=== PATIENT | female | born 1990 | race African-American/Black ===

== ENCOUNTER 2021-11-06 14:37 | Emergency (ER) | payer SELFPAY ==
[2021-11-06 14:46] VITALS: BP 112/99; PULSE 99; RESP 16; TEMP 36.4; O2SAT 98
--- NOTE | 2021-11-06 16:02 | ED.BACK ---
HPI - Back Pain/Injury General Chief Complaint: Back Pain/Injury Stated Complaint: surinder pain Time Seen by Provider: 11/06/21 15:50 Source: patient and RN notes reviewed Mode of arrival: ambulatory Limitations: no limitations History of Present Illness HPI Narrative: Patient presents today complaining of left-sided upper back pain since last night. Denies any injury or trauma. 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 States she did some jumping jacks yesterday as well, but denies specific injury. She currently rates her pain 10/10 and has been taking Aleve and ibuprofen without relief. Pain increases with deep breath and certain arm movements. MD elicited complaint: back pain Related Data Allergies Allergy/AdvReac Type Severity Reaction Status Date / Time No Known Allergies Allergy Verified 11/06/21 15:25 Review of Systems Review of Systems: CONSTITUTIONAL: Denies body aches, fever, chills, or sweats. EYES: Denies visual changes, redness, or discharge. ENT: Denies rhinorrhea, congestion, sore throat, or otalgia. CARDIOVASCULAR: Denies chest pain, palpitations, or edema. RESPIRATORY: Denies cough or dyspnea. GASTROINTESTINAL: Denies abdominal pain, nausea, vomiting, or diarrhea. GENITOURINARY: Denies dysuria or hematuria. SKIN: Denies rash, itching, or wounds. MUSCULOSKELETAL: Denies joint pain, or myalgia. + Left upper back pain NEUROLOGIC: Denies headache, numbness, tingling, or weakness. PSYCH: Denies depression or anxiety. PMFSH Comments At time of signature, I have reviewed and agree with nursing past medical, surgical, social and family history unless otherwise noted. Please see nursing chart for further information. There is no relevant family history pertinent to the presenting complaint Exam Narrative: GENERAL: Well-appearing, well-nourished, and in no acute distress. HEAD: Normocephalic, atraumatic. EYES: EOMI. No redness or drainage. Conjunctivae normal. ENT: Mucous membranes pink and moist. NECK: Normal AROM. CHEST: No respiratory distress. Clear to auscultation. HEART: Regular rate and rhythm. No murmur appreciated. Normal peripheral pulses. MUSCULOSKELETAL: No bony tenderness of the spine. Left upper back paraspinal muscles are nontender. EXTREMITIES: Normal range of motion. No edema. Pain to left upper back at scapular border with increased pain when she stretched her left arm over her head toward her right shoulder. SKIN: Warm, dry, no rash. Capillary refill normal. Normal skin turgor. NEURO: No focal deficits. Alert and oriented x3. Gait steady. PSYCH: Normal affect. No signs of depression or anxiety. Course Course Level of Care: Express Care Visit Vital Signs Vital signs: Vital Signs Temperature 97.5 F L 11/06/21 14:46 Pulse Rate 99 11/06/21 14:46 Respiratory Rate 16 11/06/21 14:46 Blood Pressure 112/99 H 11/06/21 14:46 Pulse Oximetry 98 11/06/21 14:46 Temperature 97.5 F L 11/06/21 14:46 Pulse Rate 99 11/06/21 14:46 Respiratory Rate 16 11/06/21 14:46 Blood Pressure 112/99 H 11/06/21 14:46 Pulse Oximetry 98 11/06/21 14:46 Reviewed. Pt has been instructed to follow up with her PCP regarding her elevated blood pressure today. MDM - Back Pain/Injury Differential Diagnosis Differential diagnosis: Likely thoracic back pain and other (Thoracic back strain, trapezius strain, chest wall strain) Critical Care Time Critical Care Time Critical Care Time: No Discharge Plan Discharge Clinical Impression: Strain of thoracic back region Patient Disposition: Home, Self-Care Condition: Stable Instructions: Thoracic Back Strain (ED) Additional Instructions: Please take the Flexeril as prescribed. Do not drive within 8 hours of taking the Flexeril as it can make you drowsy. Continue an anti-inflammatory such as Aleve or ibuprofen for pain and inflammation. Use a heating pad to help relax the muscles. If you develop any additional symptom
== END 2021-11-06 16:15 | disposition home or self-care (01) ==
PROVIDERS: Emergency Provider Nurse Practitioner
DX: S29.012A Strain of muscle and tendon of back wall of thorax, initial encounter (principal); X58.XXXA Exposure to other specified factors, initial encounter
CPT/HCPCS: 99213; G0463